=== PATIENT | female | born 1950 | race Two or more races ===

== ENCOUNTER 2016-06-27 02:52 | Emergency (ER) | payer MEDICARE, OTHER ==
[2016-06-27] MEDS ORDERED: IV NS 0.9% 500 ML IV ONE (03:44)
[2016-06-27] MEDS ORDERED: ONDANSETRON HCL/PF 4 MG/2 ML VIAL ONE (03:44)
[2016-06-27] MEDS ORDERED: MORPHINE SULFATE INJ 4 MG/ML DISP.SYRIN ONE (03:44)
[2016-06-27 03:58] LABS: BASOPHILS % (AUTO) 0.6 % (0.0-2.0); DIFF TOTAL % 100 %; EOSINOPHILS % (AUTO) 0.3 % (0.0-6.0); HEMATOCRIT 42 % (33-45); HEMOGLOBIN 14.2 g/dL (11.5-14.8); LYMPHOCYTES # (AUTO) 2.5 /CMM (0.8-4.8); LYMPHOCYTES % (AUTO) 37.4 % (20.0-44.0); MEAN CORPUSCULAR HEMOGLOBIN 28 PG (26.0-33.0); MEAN CORPUSCULAR HGB CONC 34 g/dl (31.0-36.0); MEAN CORPUSCULAR VOLUME 82 fL (82-100); MONOCYTES # (AUTO) 0.8 /CMM (0.1-1.30); MONOCYTES % (AUTO) 12.1 % (2.0-12.0); NEUTROPHILS # (AUTO) 3.4 /CMM (1.8-8.9); NEUTROPHILS % (AUTO) 49.6 % (43.0-81.0); PLATELET COUNT (AUTO) 347 /CMM (150-450); RED BLOOD CELL COUNT(AUTO) 5.17 MIL/uL (4.0-5.2); WHITE BLOOD COUNT (AUTO) 6.8 K/uL (4.3-11.0)
[2016-06-27] MEDS ORDERED: ONDANSETRON HCL/PF 4 MG/2 ML VIAL IVP ONE (04:00)
[2016-06-27] MEDS ORDERED: IV NS 0.9% 500 ML BAG IV ONE (04:00)
[2016-06-27] MEDS ORDERED: MORPHINE SULFATE INJ 2 MG/ML DISP.SYRIN IV ONE (04:00)
[2016-06-27 04:07] LABS: ANION GAP 12 (5-14); CALCIUM, SERUM 8.9 mg/dL (8.5-10.1); CARBON DIOXIDE 32 mmol/L (21-32); CHLORIDE 96 mmol/L (98-107); CREATININE 0.8 mg/dL (0.6-1.3); GFR 72 mL/min (>60); GLUCOSE 103 mg/dL (74-106); POTASSIUM 3.4 mmol/L (3.5-5.1); SODIUM SERUM 137 mmol/L (136-145); UREA NITROGEN, BLOOD 18 mg/dL (7-18)
[2016-06-27 04:10] LABS: INR 0.92 (0.87-1.13); PROTHROMBIN TIME 9.9 SECS (9.5-12.7)
[2016-06-27 04:13] LABS: ALANINE AMINOTRANSFERASE 76 U/L (12-78); ALBUMIN 3.9 g/dL (3.4-5.0); ASPARTATE AMINOTRANSFERASE 43 U/L (15-37); BILIRUBIN,TOTAL 0.2 mg/dL (0.2-1.0); TOTAL PROTEIN, SERUM 8.4 g/dL (6.4-8.2)
[2016-06-27 04:15] LABS: TROPONIN I < 0.017 ng/mL (0.00-0.056)
[2016-06-27 04:19] LABS: INDIRECT BILIRUBIN 0.2 mg/dL (0.0-1.1)
[2016-06-27 04:24] LABS: KETONES,URINE NEGATIVE (NEGATIVE); LEUKOCYTE ESTERASE ,URINE NEGATIVE (NEGATIVE)
[2016-06-27 04:33] LABS: ADD UA MICROSCOPIC YES
[2016-06-27 04:36] LABS: ADD URINE CULTURE NO
[2016-06-27 04:55] VITALS: BP 138/71
== END 2016-06-27 04:56 | disposition home or self-care (01) ==
LOC: ER 02:55
DX: K85.90 Acute pancreatitis without necrosis or infection, unspecified (principal)
CPT/HCPCS: 36415; 74176; 80048; 80076; 81001; 83690; 84484; 85025; 85730; 93005; 96361; 96374; 99285; A4606 ×2; J2270; J2405; J7040; 81000-TC; Z7610

== ENCOUNTER 2016-07-11 18:15 | Inpatient (IN) | payer MEDICARE, OTHER ==
[~2016-07-11] VITALS: Ht 163.8 cm; Wt 69.9 kg
[2016-07-11] MEDS ORDERED: IV NS 0.9% 1,000 ML BAG IV ONE (19:00)
[2016-07-11] MEDS ORDERED: ONDANSETRON HCL/PF 4 MG/2 ML VIAL IV ONE (19:00)
[2016-07-11] MEDS ORDERED: IV NS 0.9% 1,000 ML ONE (19:09)
[2016-07-11] MEDS ORDERED: IV SET PRIMARY PUMP SET 1 EA INFUS.SET MC ONE (19:09)
[2016-07-11] MEDS ORDERED: ONDANSETRON HCL/PF 4 MG/2 ML VIAL ONE (19:09)
[2016-07-11 19:26] LABS: ANION GAP 13 (5-14); CALCIUM, SERUM 8.9 mg/dL (8.5-10.1); CARBON DIOXIDE 29 mmol/L (21-32); CHLORIDE 105 mmol/L (98-107); GFR 55 mL/min (>60); GLUCOSE 121 mg/dL (74-106); POTASSIUM 3.6 mmol/L (3.5-5.1); SODIUM SERUM 143 mmol/L (136-145); UREA NITROGEN, BLOOD 14 mg/dL (7-18)
[2016-07-11 19:30] LABS: BASOPHILS # (AUTO) 0.1 /CMM (0.0-0.2); BASOPHILS % (AUTO) 0.9 % (0.0-2.0); DIFF TOTAL % 100 %; EOSINOPHILS % (AUTO) 0.1 % (0.0-6.0); HEMATOCRIT 39 % (33-45); HEMOGLOBIN 12.8 g/dL (11.5-14.8); LYMPHOCYTES # (AUTO) 0.9 /CMM (0.8-4.8); LYMPHOCYTES % (AUTO) 9.3 % (20.0-44.0); MEAN CORPUSCULAR HEMOGLOBIN 27 PG (26.0-33.0); MEAN CORPUSCULAR HGB CONC 33 g/dl (31.0-36.0); MEAN CORPUSCULAR VOLUME 83 fL (82-100); MONOCYTES # (AUTO) 0.3 /CMM (0.1-1.30); MONOCYTES % (AUTO) 3.1 % (2.0-12.0); NEUTROPHILS # (AUTO) 8.5 /CMM (1.8-8.9); NEUTROPHILS % (AUTO) 86.6 % (43.0-81.0); PLATELET COUNT (AUTO) 344 /CMM (150-450); RED BLOOD CELL COUNT(AUTO) 4.73 MIL/uL (4.0-5.2); WHITE BLOOD COUNT (AUTO) 9.8 K/uL (4.3-11.0)
[2016-07-11 19:34] LABS: TROPONIN I < 0.017 ng/mL (0.00-0.056)
[2016-07-11] MEDS ORDERED: MECLIZINE HCL 25 MG TABLET ONE (19:37)
[2016-07-11 19:56] LABS: BAND % (MANUAL) 4 % (0.0-5.0); BASOPHILS % (MANUAL) 0 % (0.0-2.0); EOSINOPHILS % (MANUAL) 0 % (0-4); LYMPHOCYTES % (MANUAL) 11 % (16-48); PLATELET ESTIMATE ADEQUATE
[2016-07-11 19:57] LABS: RBC MORPHOLOGY COMMENT NORMAL RBC MORPH
[2016-07-11] MEDS ORDERED: MECLIZINE HCL 12.5 MG TABLET PO ONE (20:00)
[2016-07-11] MEDS ORDERED: LORAZEPAM INJ 2 MG/ML VIAL ONE (21:07)
[2016-07-11] MEDS ORDERED: DEXAMETHASONE SOD PHOSPHATE 4 MG/ML VIAL ONE (21:07)
[2016-07-11] MEDS ORDERED: DEXAMETHASONE SOD PHOSPHATE 4 MG/ML VIAL IV ONE (21:30)
[2016-07-11] MEDS ORDERED: LORAZEPAM INJ 2 MG/ML VIAL IV ONE (21:30)
[2016-07-11 22:35] VITALS: BP 134/65
[2016-07-11 22:50] VITALS: BP 134/65
[2016-07-11] MEDS ORDERED: ONDANSETRON HCL/PF 4 MG/2 ML VIAL IVP PRN (23:30)
[2016-07-11] MEDS ORDERED: LORAZEPAM INJ 2 MG/ML VIAL IV PRN (23:30)
[2016-07-11] MEDS ORDERED: ACETAMINOPHEN 325 MG TABLET PO PRN (23:30)
[2016-07-12] MEDS ORDERED: IPRA12.9 IH (00:04)
[2016-07-12] MEDS ORDERED: HYDR12.5 PO (00:04)
[2016-07-12] MEDS ORDERED: LEVO25TA7 PO (00:04)
[2016-07-12] MEDS ORDERED: POTA8CAP10 PO (00:04)
[2016-07-12] MEDS ORDERED: IPRATROPIUM BROMIDE 14 GM INHALER (or 12.9 GM) IH PRN (01:30)
[2016-07-12 07:04] LABS: BASOPHILS # (AUTO) 0.1 /CMM (0.0-0.2); BASOPHILS % (AUTO) 0.6 % (0.0-2.0); DIFF TOTAL % 100 %; EOSINOPHILS # (AUTO) 0.1 /CMM (0.0-0.7); EOSINOPHILS % (AUTO) 1.1 % (0.0-6.0); HEMATOCRIT 37 % (33-45); HEMOGLOBIN 12.1 g/dL (11.5-14.8); LYMPHOCYTES # (AUTO) 2.9 /CMM (0.8-4.8); LYMPHOCYTES % (AUTO) 29.6 % (20.0-44.0); MEAN CORPUSCULAR HEMOGLOBIN 28 PG (26.0-33.0); MEAN CORPUSCULAR HGB CONC 33 g/dl (31.0-36.0); MEAN CORPUSCULAR VOLUME 83 fL (82-100); MONOCYTES # (AUTO) 0.7 /CMM (0.1-1.30); MONOCYTES % (AUTO) 7.7 % (2.0-12.0); NEUTROPHILS # (AUTO) 5.9 /CMM (1.8-8.9); PLATELET COUNT (AUTO) 331 /CMM (150-450); RED BLOOD CELL COUNT(AUTO) 4.39 MIL/uL (4.0-5.2); WHITE BLOOD COUNT (AUTO) 9.7 K/uL (4.3-11.0)
[2016-07-12 07:25] LABS: CALCIUM, SERUM 8.3 mg/dL (8.5-10.1); CREATININE 0.8 mg/dL (0.6-1.3); PHOSPHORUS 3.1 mg/dL (2.5-4.9); POTASSIUM 3.6 mmol/L (3.5-5.1)
[2016-07-12 08:00] VITALS: BP 106/63
[2016-07-12] MEDS ORDERED: IPRATROPIUM NEB FS 0.5 MG/2.5 ML AMPUL.NEB NEB PRN (08:30)
[2016-07-12] MEDS: POTASSIUM CHLORIDE 10 MEQ TABLET.SA PO SCH (08:45)
[2016-07-12] MEDS: PANTOPRAZOLE 40 MG VIAL IV SCH (08:46)
[2016-07-12] MEDS: LEVOTHYROXINE SODIUM 25 MCG TABLET PO SCH (08:46)
[2016-07-12] MEDS: HYDROCHLOROTHIAZIDE 25 MG TABLET PO SCH (08:46)
[2016-07-12] MEDS ORDERED: MECLIZINE HCL 12.5 MG TABLET PO PRN (10:00)
[2016-07-12] MEDS ORDERED: DIAZEPAM 2 MG TABLET PO PRN (11:30)
[2016-07-12 16:00] VITALS: BP 105/67
[2016-07-12 20:00] VITALS: BP 102/65
[2016-07-12 22:00] VITALS: BP 102/65
[2016-07-13] MEDS: LEVOTHYROXINE SODIUM 25 MCG TABLET PO SCH (07:48)
[2016-07-13 08:00] VITALS: BP 112/70
[2016-07-13] MEDS: HYDROCHLOROTHIAZIDE 25 MG TABLET PO SCH (08:08)
[2016-07-13] MEDS: POTASSIUM CHLORIDE 10 MEQ TABLET.SA PO SCH (08:08)
[2016-07-13] MEDS: PANTOPRAZOLE 40 MG VIAL IV SCH (08:11)
[2016-07-13] MEDS ORDERED: PROGESTERONE,MICRONIZED 100 MG CAPSULE PO SCH (09:00)
[2016-07-13] MEDS ORDERED: DIAZEPAM 2 MG TABLET PO ONE (11:00)
[2016-07-13] MEDS: MECLIZINE HCL 12.5 MG TABLET PO SCH ×2 (13:00→16:32)
[2016-07-13 14:45] LABS: KETONES,URINE NEGATIVE (NEGATIVE); LEUKOCYTE ESTERASE ,URINE NEGATIVE (NEGATIVE); PH,URINE 6.5 (5.0-8.0)
[2016-07-13 14:50] LABS: ADD UA MICROSCOPIC YES
[2016-07-13 14:57] LABS: ADD URINE CULTURE NO; WBC,URINE NONE SEEN /HPF (0-3)
[2016-07-13 16:00] VITALS: BP 111/62
== END 2016-07-13 18:15 | disposition home or self-care (01) | DRG 149 ==
LOC: ER 18:16 → MEDSG2 22:07
PROVIDERS: ADMIT Nurse Practitioner Acute Care; ATTEND Nurse Practitioner Acute Care
DX: H81.09 Meniere's disease, unspecified ear (principal); K21.9 Gastro-esophageal reflux disease without esophagitis; E03.9 Hypothyroidism, unspecified; E78.5 Hyperlipidemia, unspecified
CPT/HCPCS: 36415; 70450-TC; 70551-TC; 80048-TC; 80061-TC; 81000-TC; 83735-TC; 84100-TC; 84484-TC; 85025-TC; 87081-TC; A4606; C9113; J1100; J2060; J2405; J7030; J8597; Z7610

== ENCOUNTER 2018-03-29 12:13 | Emergency (ER) | payer MEDICARE, OTHER ==
[~2018-03-29] VITALS: Ht 162.6 cm; Wt 72.1 kg
[~2018-03-29 12:13] MED LIST: HYDR12.5 PO; IPRA12.9 IH; LEVO25TA7 PO; POTA8CAP10 PO
--- NOTE | 2018-03-29 12:30 | NUR ---
ASHTYN FROM HOME WITH CC OF ABDOMINAL CRAMPING, FEVER X 2 DAYS,WATERY DIARRHEA THIS AM ,AOX3 , VSS , SKIN WARM TO TOUCH , WILL CONTINUE TO MONITOR
[2018-03-29 13:29] LABS: BASOPHILS % (AUTO) 0.3 % (0.0-2.0); EOSINOPHILS % (AUTO) 1.2 % (0.0-6.0); HEMATOCRIT 41 % (33-45); HEMOGLOBIN 13.9 g/dL (11.5-14.8); LYMPHOCYTES # (AUTO) 1.2 /CMM (0.8-4.8); LYMPHOCYTES % (AUTO) 11.8 % (20.0-44.0); MEAN CORPUSCULAR HGB CONC 34 g/dl (31.0-36.0); MEAN CORPUSCULAR VOLUME 83 fL (82-100); MONOCYTES # (AUTO) 0.6 /CMM (0.1-1.30); MONOCYTES % (AUTO) 5.7 % (2.0-12.0); PLATELET COUNT (AUTO) 282 /CMM (150-450); RDW COEFFICIENT OF VARIATION 13.4 (11.5-15.0); RED BLOOD CELL COUNT(AUTO) 4.95 MIL/uL (4.0-5.2); WHITE BLOOD COUNT (AUTO) 9.9 K/uL (4.3-11.0)
[2018-03-29 13:37] LABS: CALCIUM, SERUM 8.7 mg/dL (8.5-10.1); CREATININE 1.1 mg/dL (0.6-1.3); POTASSIUM 3.5 mmol/L (3.5-5.1)
[2018-03-29 13:44] LABS: ALBUMIN 3.3 g/dL (3.4-5.0); BILIRUBIN,DIRECT 0.1 mg/dL (0.0-0.2); BILIRUBIN,TOTAL 0.3 mg/dL (0.2-1.0); TOTAL PROTEIN, SERUM 7.3 g/dL (6.4-8.2)
--- NOTE | 2018-03-29 14:25 | NUR ---
URINE SPECIMEN COLLECTED , LABELED AND SENT TO LAB .
[2018-03-29 14:29] LABS: APPEARANCE,URINE Clear (CLEAR); BILIRUBIN,URINE Negative (NEGATIVE); BLOOD, URINE Moderate Ery/uL (NEGATIVE); COLOR,URINE Yellow (YELLOW); KETONES,URINE Negative (NEGATIVE); LEUKOCYTE ESTERASE ,URINE Small (NEGATIVE); NITRITE, URINE Negative (NEGATIVE); PH,URINE 5.5 (5.0-8.0); PROTEIN,URINE Negative (NEGATIVE); UGLUCOSE Negative (NEGATIVE); UROBILINOGEN,URINE 0.2 EU/dL (0.2)
[2018-03-29 14:34] LABS: BACTERIA,URINE Many /HPF (None Seen); SQUAMOUS EPITHELIAL CELL,UR Many /HPF (None Seen)
[2018-03-29 15:14] VITALS: BP 120/55
[2018-03-29 23:15] LABS: OCCULT BLOOD STOOL NEGATIVE (NEGATIVE)
== END 2018-03-29 15:16 | disposition home or self-care (01) ==
LOC: ER 12:16
DX: R10.84 Generalized abdominal pain (principal); R19.7 Diarrhea, unspecified; E78.5 Hyperlipidemia, unspecified; Z88.0 Allergy status to penicillin; Z88.8 Allergy status to other drugs, medicaments and biological substances; Z79.899 Other long term (current) drug therapy
CPT/HCPCS: 36415; 74176; 80048; 80076; 81001; 82272; 83690; 85025; 87015; 87045; 87086; 87427 ×3; 87493; 89055; 99285; A4606; 81000-TC; Z7610

== ENCOUNTER 2019-03-09 15:56 | Emergency (ER) | payer MEDICARE, OTHER ==
[~2019-03-09] VITALS: Ht 162.6 cm; Wt 65.3 kg
[~2019-03-09 15:56] MED LIST changes: -POTA8CAP10 PO; +POTA8CAP20 PO
--- NOTE | 2019-03-09 16:14 | NUR ---
CAME IN FOR PALPITATIONS AND LIGHTHEADED S/P THREADMILL 2 HOURS AGO. I FEEL FINE RIGHT NOW, TO ER BED 9, HOOKED TO MONITOR, VSS, CHANGED TO HOSPITAL GOWN, PROVIDED W WARM BLANKET, AWAITING MD COLE.
--- NOTE | 2019-03-09 17:00 | NUR ---
DR NARANJO AT BEDSIDE FOR EVAL
[2019-03-09 17:26] LABS: BASOPHILS # (AUTO) 0.1 /CMM (0.0-0.2); BASOPHILS % (AUTO) 0.8 % (0.0-2.0); HEMATOCRIT 40 % (33-45); HEMOGLOBIN 13.6 g/dL (11.5-14.8); LYMPHOCYTES % (AUTO) 20.8 % (20.0-44.0); MEAN CORPUSCULAR HGB CONC 34 g/dl (31.0-36.0); MEAN CORPUSCULAR VOLUME 85 fL (82-100); MONOCYTES # (AUTO) 0.6 /CMM (0.1-1.30); NEUTROPHILS # (AUTO) 6.8 /CMM (1.8-8.9); NEUTROPHILS % (AUTO) 71.4 % (43.0-81.0); PLATELET COUNT (AUTO) 306 /CMM (150-450); WHITE BLOOD COUNT (AUTO) 9.5 K/uL (4.3-11.0)
[2019-03-09] MEDS ORDERED: IV NS 0.9% 1,000 ML BAG IV ONE (17:30)
[2019-03-09 17:52] LABS: THYROID STIMULATING HORMONE 0.193 uIU/mL (0.358-3.74)
[2019-03-09 17:54] LABS: CALCIUM, SERUM 8.8 mg/dL (8.5-10.1); CARBON DIOXIDE 28 mmol/L (21-32); CHLORIDE 101 mmol/L (98-107); CREATININE 0.9 mg/dL (0.6-1.3); GLUCOSE 96 mg/dL (74-106); POTASSIUM 3.6 mmol/L (3.5-5.1); SODIUM SERUM 137 mmol/L (136-145); UREA NITROGEN, BLOOD 14 mg/dL (7-18)
--- NOTE | 2019-03-09 17:56 | NUR ---
URINE SAMPLE SENT TO LAB
[2019-03-09 17:59] LABS: ALANINE AMINOTRANSFERASE 18 U/L (12-78); ALBUMIN 3.6 g/dL (3.4-5.0); ALKALINE PHOSPHATASE 68 U/L (46-116); ASPARTATE AMINOTRANSFERASE 19 U/L (15-37); BILIRUBIN,DIRECT 0.1 mg/dL (0.0-0.2); BILIRUBIN,TOTAL 0.2 mg/dL (0.2-1.0); LIPASE 171 U/L (73-393); TOTAL PROTEIN, SERUM 7.5 g/dL (6.4-8.2)
[2019-03-09 18:00] LABS: APPEARANCE,URINE Clear (CLEAR); BILIRUBIN,URINE Negative (NEGATIVE); BLOOD, URINE Small Ery/uL (NEGATIVE); COLOR,URINE Yellow (YELLOW); KETONES,URINE Negative (NEGATIVE); LEUKOCYTE ESTERASE ,URINE Negative (NEGATIVE); NITRITE, URINE Negative (NEGATIVE); PROTEIN,URINE Negative (NEGATIVE); UGLUCOSE Negative (NEGATIVE); UROBILINOGEN,URINE 0.2 EU/dL (0.2)
[2019-03-09 18:32] LABS: BACTERIA,URINE Rare /HPF (None Seen); SQUAMOUS EPITHELIAL CELL,UR Few /HPF (None Seen); WBC,URINE 0-2 /HPF (0-3)
[2019-03-09 18:43] VITALS: BP 126/70
--- NOTE | 2019-03-09 19:09 | NUR ---
IV removed. Catheter intact and site benign. Pressure and 4x4 applied to site. No bleeding noted. Patient discharged to home in stable condition. Written and verbal after care instructions given. Patient verbalizes understanding of instruction.
== END 2019-03-09 19:10 | disposition home or self-care (01) ==
LOC: ER 15:58
DX: R00.2 Palpitations (principal); R42 Dizziness and giddiness; E03.9 Hypothyroidism, unspecified; G47.30 Sleep apnea, unspecified; Z88.0 Allergy status to penicillin; Z88.1 Allergy status to other antibiotic agents; Z88.9 Allergy status to unspecified drugs, medicaments and biological substances
CPT/HCPCS: 36415; 71045; 80048; 80076; 81001; 83690; 84439; 84443; 84481; 84484; 85025; 93005; 96360; 99284; J7030; 81000-TC

== ENCOUNTER 2019-06-04 19:28 | Emergency (ER) | payer MEDICARE, OTHER, BC ==
[~2019-06-04] VITALS: Ht 162.6 cm; Wt 65.8 kg
[2019-06-04 19:33] VITALS: BP 139/81
[2019-06-04] MEDS ORDERED: ACETAMINOPHEN 325 MG TABLET ONE (20:18)
[2019-06-04] MEDS ORDERED: ACETAMINOPHEN 325 MG TABLET PO ONE (20:30)
--- NOTE | 2019-06-04 21:33 | NUR ---
Patient discharged to home in stable condition. Written and verbal after care instructions given. Patient verbalizes understanding of instruction. Pt ambulatory with a steady gait
== END 2019-06-04 21:34 | disposition home or self-care (01) ==
LOC: ER 19:29
DX: J06.9 Acute upper respiratory infection, unspecified (principal); R59.0 Localized enlarged lymph nodes; I95.9 Hypotension, unspecified; E03.9 Hypothyroidism, unspecified; E78.5 Hyperlipidemia, unspecified; G47.30 Sleep apnea, unspecified; Z90.89 Acquired absence of other organs; Z88.0 Allergy status to penicillin; Z88.1 Allergy status to other antibiotic agents; Z88.9 Allergy status to unspecified drugs, medicaments and biological substances; Z79.899 Other long term (current) drug therapy
CPT/HCPCS: 86403-TC; 87070-TC

== ENCOUNTER 2021-03-21 18:46 | Inpatient (IN) | payer MEDICARE, BC ==
[~2021-03-21] VITALS: Ht 162.6 cm; Wt 68.5 kg
[2021-03-21] MEDS ORDERED: ASPIRIN 325 MG TABLET ONE (18:57)
[2021-03-21] MEDS ORDERED: NITROGLYCERIN 0.4 MG/TAB BOTTLE ONE (18:57)
[2021-03-21] MEDS ORDERED: ASPIRIN 325 MG TABLET PO ONE (19:00)
[2021-03-21] MEDS ORDERED: NITROGLYCERIN 0.4 MG/TAB BOTTLE SL ONE (19:00)
--- NOTE | 2021-03-21 19:00 | NUR ---
TO ER BED 1, CP, PRESSURE LIKE; 12/28- HAPPENED WHILE SHE WAS USING TREADMILL, DENIES PAIN UPON ARRIVAL, AAOX4, BREATHING EVEN AND NON LABORED
--- NOTE | 2021-03-21 19:14 | NUR ---
REFUSED ASPIRIN AND NITRO, DR JOHN AWARE
[2021-03-21 19:23] LABS: BASOPHILS # (AUTO) 0.1 K/uL (0.0-0.2); BASOPHILS % (AUTO) 0.9 % (0.0-2.0); EOSINOPHILS % (AUTO) 2.3 % (0.0-6.0); HEMATOCRIT 42 % (33-45); HEMOGLOBIN 13.1 g/dL (11.5-14.8); LYMPHOCYTES # (AUTO) 2.3 K/uL (0.8-4.8); LYMPHOCYTES % (AUTO) 31.2 % (20.0-44.0); MEAN CORPUSCULAR HGB CONC 32 g/dl (31.0-36.0); MEAN CORPUSCULAR VOLUME 90 fL (82-100); MONOCYTES # (AUTO) 0.6 K/uL (0.1-1.30); MONOCYTES % (AUTO) 8.6 % (2.0-12.0); NEUTROPHILS # (AUTO) 4.3 K/uL (1.8-8.9); PLATELET COUNT (AUTO) 317 K/uL (150-450); RED BLOOD CELL COUNT(AUTO) 4.62 MIL/uL (4.0-5.2); WHITE BLOOD COUNT (AUTO) 7.5 K/uL (4.3-11.0)
--- NOTE | 2021-03-21 19:25 | NUR ---
CALLED LAB FOR SWAB
[2021-03-21 19:31] LABS: CALCIUM, SERUM 9.1 mg/dL (8.5-10.1); CARBON DIOXIDE 30 mmol/L (21-32); CHLORIDE 102 mmol/L (98-107); CREATININE 0.9 mg/dL (0.6-1.3); GLUCOSE 102 mg/dL (74-106); POTASSIUM 3.3 mmol/L (3.5-5.1); SODIUM SERUM 138 mmol/L (136-145); UREA NITROGEN, BLOOD 14 mg/dL (7-18)
--- NOTE | 2021-03-21 20:20 | NUR ---
F/U FOR COVID SWAB, ETA 15MIN
--- NOTE | 2021-03-21 20:57 | NUR ---
F/U ON COVID RESULT, PER LAB, STILL RUNNING
[2021-03-21] MEDS ORDERED: MAGNESIUM HYDROXIDE 30 ML UDC PO PRN (21:00)
[2021-03-21] MEDS ORDERED: ACETAMINOPHEN 325 MG TABLET PO PRN (21:00)
[2021-03-21] MEDS ORDERED: LORAZEPAM 1 MG TABLET PO PRN (21:00)
[2021-03-21] MEDS ORDERED: ENOXAPARIN SODIUM 40 MG/0.4 ML DISP.SYRIN SQ SCH (21:00)
[2021-03-21] MEDS ORDERED: Z GUARD REMEDY 2 OZ OINT TP PRN (21:00)
[2021-03-21] MEDS ORDERED: ONDANSETRON HCL/PF 4 MG/2 ML VIAL IVP PRN (21:00)
[2021-03-21] MEDS ORDERED: MORPHINE SULFATE INJ 2 MG/ML DISP.SYRIN IV PRN (21:00)
[2021-03-21] MEDS ORDERED: HYDROCODONE/APAP 5/325MG TABLET PO PRN (21:00)
[2021-03-21] MEDS ORDERED: POTASSIUM CHLORIDE 10 MEQ TABLET.SA PO ONE (21:00)
[2021-03-21] MEDS ORDERED: MAG HYDROX/AL HYDROX/SIMETH 30 ML UDC PO PRN (21:00)
[2021-03-21] MEDS ORDERED: NITROGLYCERIN 0.4 MG/TAB BOTTLE SL PRN (21:00)
--- NOTE | 2021-03-21 21:17 | NUR ---
CALLED HOUSE SUP FOR TELE BED
[2021-03-21 21:54] VITALS: BP 146/64
--- NOTE | 2021-03-21 23:00 | NUR ---
RN NOTES PT IS A 70 YEAR OLD FEMALE A/O X4 ON ROOM AIR TOLERATING WELL. NO PAIN OR DISCOMFORT NOTED OR REPORTED NO CHEST PAIN.ON TELE MONITOR. ALLERGIC TO PENICILLIN, CLINDAMYCIN, PROCHLORPERAZINE PT STATED SHE IS VERY SENSITIVE TO ALL STIMULANTS WELL. ADMITTING DX CHEST PAIN POSSIBLE ACS IV SITE ON THE LEFT AC 18 G S/L INTACT FLUSHING WELL. NO EDEMA PRESENT SKIN INTACT AMBULATORY. 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 PT HAS A PILL CONTAINER IN HER BAD BUT REFUSES TO GIVE IT TO ME RISK EXPLAINED PT STATED " I AM A GOOD PT I PROMISE NOT TO TAKE ANY OF THE PILLS AND IF I DO I WILL LET YOU KNOW BEFORE I TAKE THEM." PT ONLY HAVE ME ONE MEDICATION SERC- 16. CHARGE NURSE AWARE. PT REFUSED CHECK OF WALLET. PT ORIENTED TO ROOM AND UNIT CALL LIGHT PLACED WITHIN REACH BILATERAL SIDE RAILS UP FOR SAFETY. PT REFUSED POTASSIUM AND LOVENOX AT THIS TIME STATED " MY BODY NEEDS TO BE IN HOMEOSTASIS I CANNOT TAKE ANY RANDOM MEDICATION I KNOW MY BODY IS VERY SENSITIVE" RISK AND BENEFITS EXPLAINED PT STILL REFUSED. PRN ATIVAN GIVEN AND TOLERATED WELL ALL NEEDS MET AT THIS TIME. WILL CONTINUE TO MONITOR.
[2021-03-21 23:28] VITALS: BP 146/74
[2021-03-22] VITALS: BP 120/51
[2021-03-22 04:00] VITALS: BP 110/50
[2021-03-22 06:28] LABS: BASOPHILS # (AUTO) 0.1 K/uL (0.0-0.2); EOSINOPHILS % (AUTO) 2.5 % (0.0-6.0); HEMATOCRIT 39 % (33-45); LYMPHOCYTES % (AUTO) 34.7 % (20.0-44.0); MEAN CORPUSCULAR HGB CONC 33 g/dl (31.0-36.0); MEAN CORPUSCULAR VOLUME 86 fL (82-100); MONOCYTES # (AUTO) 0.8 K/uL (0.1-1.30); NEUTROPHILS # (AUTO) 4.6 K/uL (1.8-8.9); NEUTROPHILS % (AUTO) 52.8 % (43.0-81.0); PLATELET COUNT (AUTO) 286 K/uL (150-450); RED BLOOD CELL COUNT(AUTO) 4.52 MIL/uL (4.0-5.2); WHITE BLOOD COUNT (AUTO) 8.7 K/uL (4.3-11.0)
--- NOTE | 2021-03-22 06:40 | NUR ---
RN NOTES A/O X4 ON ROOM AIR TOLERATING WELL. NO PAIN OR DISCOMFORT NOTED OR REPORTED NO CHEST PAIN. IV SITE ON THE LEFT AC 18 G S/L INTACT FLUSHING WELL. NO EDEMA PRESENT SKIN INTACT AMBULATORY. CALL LIGHT PLACED WITHIN REACH BILATERAL SIDE RAILS UP FOR SAFETY. ALL NEEDS MET AT THIS TIME. WILL ENDORSE CARE TO DAY SHIFT NURSE MEDICATION WILL BE GIVEN TO MORNING NURSE AND WILL BE MADE AWARE OF PTS MEDICATIONS AT BEDSIDE PT IS STILL REFUSING TO GIVE THEM TO PHARMACY WILL ENDORSE CRAE TO DAY SHIFT NURSE.
[2021-03-22 07:02] LABS: CALCIUM, SERUM 9.1 mg/dL (8.5-10.1); CARBON DIOXIDE 27 mmol/L (21-32); CHLORIDE 105 mmol/L (98-107); CREATININE 0.8 mg/dL (0.6-1.3); GLUCOSE 99 mg/dL (74-106); MAGNESIUM 2.3 mg/dL (1.8-2.4); PHOSPHORUS 3.4 mg/dL (2.5-4.9); POTASSIUM 3.4 mmol/L (3.5-5.1); SODIUM SERUM 142 mmol/L (136-145); UREA NITROGEN, BLOOD 14 mg/dL (7-18)
[2021-03-22 07:12] LABS: CHOLESTEROL 249 mg/dL (<200); HDL CHOLESTEROL 40 mg/dL (40-60); LDL 170 mg/dL (0-99); THYROID STIMULATING HORMONE 0.788 uIU/mL (0.358-3.74); TRIGLYCERIDES 177 mg/dL (30-150)
[2021-03-22] MEDS ORDERED: PANTOPRAZOLE 40 MG TABLET.DR PO SCH (07:30)
[2021-03-22] MEDS ORDERED: LEVOTHYROXINE SODIUM 75 MCG TABLET PO SCH (07:30)
--- NOTE | 2021-03-22 07:55 | NUR ---
MEDICAL IMAGING TECHNOLOGIST NOTES RECEIVED PATIENT LYING IN BED, AWAKE. A/O X4. STABLE ON ROOM AIR - NO SOB NOTED. NO DISTRESS/DISCOMFORT NOTED. NO CHEST PAIN NOTED. IV ACCESS TO LEFT AC #18 - S/L. RECEIVED PATIENT MEDICATION FROM NIGHT NURSE - WILL ASSESS IF ABLE TO GIVE TO PHARMACY TODAY. SAFETY MEASURES IN PLACE. CALL LIGHT WITHIN REACH. WILL CONTINUE TO MONITOR.
[2021-03-22 08:00] VITALS: BP 136/71
[2021-03-22] MEDS ORDERED: HYDROCHLOROTHIAZIDE 25 MG TABLET PO SCH (09:00)
[2021-03-22] MEDS ORDERED: ASPIRIN 81 MG TAB.CHEW PO SCH (09:00)
[2021-03-22 12:00] VITALS: BP 130/74
[2021-03-22] MEDS ORDERED: IPRATROPIUM NEB FS 0.5 MG/2.5 ML AMPUL.NEB NEB SCH (13:30)
[2021-03-22] MEDS ORDERED: NITROGLYCERIN 0.4 MG/TAB BOTTLE SL PRN (15:30)
[2021-03-22] MEDS ORDERED: IOHEXOL-350 100 ML VIAL IV ONE (15:40)
[2021-03-22] MEDS ORDERED: IV NS 0.9% 250 ML IV ONE (15:40)
[2021-03-22] MEDS ORDERED: METOPROLOL TARTRATE INJ 5 MG/5 ML AMPUL ONE (15:45)
[2021-03-22] MEDS ORDERED: NITROGLYCERIN 0.4 MG/TAB BOTTLE ONE (15:45)
[2021-03-22 16:00] VITALS: BP 118/65
[2021-03-22] MEDS: METOPROLOL TARTRATE INJ 5 MG/5 ML AMPUL IVP PRN ×3 (16:03→16:20)
[2021-03-22 16:20] VITALS: BP 124/60
[2021-03-22] MEDS ORDERED: POTASSIUM CHLORIDE 10 MEQ TABLET.SA PO SCH (17:00)
--- NOTE | 2021-03-22 18:24 | NUR ---
APPEALS BOARD REFEREE CLOSING NOTES PATIENT CURRENTLY LYING IN BED, AWAKE. A/O X4. STABLE ON ROOM AIR - NO SOB NOTED. NO DISTRESS/DISCOMFORT NOTED. NO CHEST PAIN NOTED. PATIENT STATES SHE IS WAITING FOR CTCA RESULTS UNTIL 730 AND THEN SHE WILL BE LEAVING TO GO HOME REGARDLESS. REQUESTED TO HAVE IV ACCESS REMOVED - STATED IT WAS HURTING HER. SAFETY MEASURES IN PLACE. CALL LIGHT WITHIN REACH. WILL ENDORSE TO DRUPAL PROGRAMMER NURSE FOR ESSIE.
--- NOTE | 2021-03-22 19:24 | NUR ---
MS RN NOTES PATIENT RECEIVED BY THE [facility],LEAVING ALREADY AGAINST MEDICAL ADVICE.SALINE LOCK REMOVED BY DAY SHIFT NURSE,CANT WAIT FOR THE CTA RESULT.CHARGE NURSE DUNG MADE AWARE.
== END 2021-03-22 19:25 | disposition left against medical advice (07) | DRG 313 ==
LOC: ER 18:51 → TELE 22:09
PROVIDERS: ADMIT Nurse Practitioner Acute Care; ATTEND Nurse Practitioner Acute Care
DX: R07.9 Chest pain, unspecified (principal); E87.6 Hypokalemia; K21.9 Gastro-esophageal reflux disease without esophagitis; E03.9 Hypothyroidism, unspecified; J45.909 Unspecified asthma, uncomplicated; H81.09 Meniere's disease, unspecified ear; Z20.822 Contact with and (suspected) exposure to COVID-19
CPT/HCPCS: 36415; 71045-TC; 75574; 80048-TC; 80061-TC; 83735-TC; 83880; 84100-TC; 84443-TC; 84484-TC; 85025-TC; 87081-TC; 93307-TC; C9803; G0378; J3490; J7050; Q9967

== ENCOUNTER 2022-06-04 11:48 | Emergency (ER) | payer MEDICARE, BC ==
[~2022-06-04] VITALS: Ht 165.1 cm; Wt 71.7 kg
[2022-06-04 12:35] LABS: BASOPHILS # (AUTO) 0.1 K/uL (0.0-0.2); BASOPHILS % (AUTO) 0.8 % (0.0-2.0); EOSINOPHILS % (AUTO) 3.2 % (0.0-6.0); HEMATOCRIT 40 % (33-45); HEMOGLOBIN 13.2 g/dL (11.5-14.8); LYMPHOCYTES # (AUTO) 2.1 K/uL (0.8-4.8); LYMPHOCYTES % (AUTO) 30.3 % (20.0-44.0); MEAN CORPUSCULAR HGB CONC 33 g/dl (31.0-36.0); MEAN CORPUSCULAR VOLUME 86 fL (82-100); MONOCYTES # (AUTO) 0.6 K/uL (0.1-1.30); MONOCYTES % (AUTO) 9.4 % (2.0-12.0); NEUTROPHILS # (AUTO) 3.9 K/uL (1.8-8.9); NEUTROPHILS % (AUTO) 56.3 % (43.0-81.0); PLATELET COUNT (AUTO) 284 K/uL (150-450); RED BLOOD CELL COUNT(AUTO) 4.66 MIL/uL (4.0-5.2); WHITE BLOOD COUNT (AUTO) 6.9 K/uL (4.3-11.0)
[2022-06-04 13:01] VITALS: BP 127/64
[2022-06-04 13:09] LABS: CALCIUM, SERUM 9.3 mg/dL (8.5-10.1); CARBON DIOXIDE 30 mmol/L (21-32); CHLORIDE 102 mmol/L (98-107); CREATININE 1.1 mg/dL (0.6-1.3); GLUCOSE 96 mg/dL (74-106); POTASSIUM 3.5 mmol/L (3.5-5.1); SODIUM SERUM 141 mmol/L (136-145); UREA NITROGEN, BLOOD 22 mg/dL (7-18)
--- NOTE | 2022-06-04 13:46 | NUR ---
IV removed. Catheter intact and site benign. Pressure and 4x4 applied to site. No bleeding noted.Patient discharged to home in stable condition. Written and verbal after care instructions given. Patient verbalizes understanding of instruction.
== END 2022-06-04 13:47 | disposition home or self-care (01) ==
LOC: ER 12:00
DX: R00.2 Palpitations (principal); H81.09 Meniere's disease, unspecified ear; G47.30 Sleep apnea, unspecified; K21.9 Gastro-esophageal reflux disease without esophagitis; I10 Essential (primary) hypertension; E03.9 Hypothyroidism, unspecified; Z88.0 Allergy status to penicillin; Z88.1 Allergy status to other antibiotic agents; Z88.8 Allergy status to other drugs, medicaments and biological substances
CPT/HCPCS: 36415; 71045-TC; 80048-TC; 84484-TC; 85025-TC

== ENCOUNTER 2023-04-10 04:19 | Emergency (ER) | payer MEDICARE, BC ==
[~2023-04-10] VITALS: Ht 162.6 cm; Wt 68.9 kg
[2023-04-10] MEDS ORDERED: ASPIRIN 325 MG TABLET ONE (04:46)
[2023-04-10] MEDS: ASPIRIN 325 MG TABLET PO ONE (04:47)
[2023-04-10 05:16] LABS: ALANINE AMINOTRANSFERASE 27 U/L (12-78); ALKALINE PHOSPHATASE 65 U/L (46-116); ASPARTATE AMINOTRANSFERASE 18 U/L (15-37); BILIRUBIN,DIRECT 0.1 mg/dL (0.0-0.2); BILIRUBIN,TOTAL 0.3 mg/dL (0.2-1.0); CALCIUM, SERUM 9.9 mg/dL (8.5-10.1); CARBON DIOXIDE 31 mmol/L (21-32); CHLORIDE 101 mmol/L (98-107); GLUCOSE 103 mg/dL (74-106); POTASSIUM 3.1 mmol/L (3.5-5.1); SODIUM SERUM 139 mmol/L (136-145); TOTAL PROTEIN, SERUM 8.3 g/dL (6.4-8.2); UREA NITROGEN, BLOOD 19 mg/dL (7-18)
[2023-04-10 05:20] LABS: BASOPHILS # (AUTO) 0.1 K/uL (0.0-0.2); EOSINOPHILS # (AUTO) 0.2 K/uL (0.0-0.7); HEMATOCRIT 41 % (33-45); HEMOGLOBIN 13.5 g/dL (11.5-14.8); LYMPHOCYTES # (AUTO) 2.6 K/uL (0.8-4.8); LYMPHOCYTES % (AUTO) 30.6 % (20.0-44.0); MEAN CORPUSCULAR HEMOGLOBIN 28 PG (26.0-33.0); MEAN CORPUSCULAR HGB CONC 33 g/dl (31.0-36.0); MEAN CORPUSCULAR VOLUME 85 fL (82-100); MONOCYTES # (AUTO) 0.7 K/uL (0.1-1.30); MONOCYTES % (AUTO) 8.5 % (2.0-12.0); NEUTROPHILS # (AUTO) 4.9 K/uL (1.8-8.9); NEUTROPHILS % (AUTO) 57.9 % (43.0-81.0); PLATELET COUNT (AUTO) 285 K/uL (150-450); RED BLOOD CELL COUNT(AUTO) 4.76 MIL/uL (4.0-5.2); WHITE BLOOD COUNT (AUTO) 8.4 K/uL (4.3-11.0)
[2023-04-10 05:27] LABS: INR 0.95 (0.91-1.10); PARTIAL THROMBOPLASTIN TIME 28.8 SEC (24.3-34.3); PROTHROMBIN TIME 10.1 SECS (9.2-11.1)
[2023-04-10 06:07] VITALS: TEMP 97.8
[2023-04-10] MEDS ORDERED: POTASSIUM CHLORIDE 20 MEQ TAB.PRT.SR PO ONE ×2 (08:00→08:16)
[2023-04-10 08:35] VITALS: BP 137/71; O2SAT 99
== END 2023-04-10 08:35 | disposition home or self-care (01) ==
LOC: ER 04:23
DX: R07.9 Chest pain, unspecified (principal); I10 Essential (primary) hypertension; I48.91 Unspecified atrial fibrillation; J45.909 Unspecified asthma, uncomplicated; K21.9 Gastro-esophageal reflux disease without esophagitis; E03.9 Hypothyroidism, unspecified; Z88.0 Allergy status to penicillin; Z88.8 Allergy status to other drugs, medicaments and biological substances
CPT/HCPCS: 36415; 71045-TC; 80048-TC; 80076-TC; 84484-TC; 85025-TC; 85378-TC; 85730-TC

== ENCOUNTER 2023-09-03 20:52 | Emergency (ER) | payer MEDICARE, BC ==
[~2023-09-03] VITALS: Ht 162.6 cm; Wt 68.0 kg
[2023-09-03] MEDS ORDERED: IBUPROFEN 600 MG TABLET ONE (21:37)
[2023-09-03] MEDS: IBUPROFEN 600 MG TABLET PO ONE (21:39)
[2023-09-03] MEDS ORDERED: IBUP-1953 PO (21:43)
[2023-09-04 00:51] VITALS: BP 133/79; TEMP 98.4; O2SAT 98
== END 2023-09-03 22:50 | disposition home or self-care (01) ==
LOC: ER 21:06
DX: S93.492A Sprain of other ligament of left ankle, initial encounter (principal); I48.91 Unspecified atrial fibrillation; K21.9 Gastro-esophageal reflux disease without esophagitis; J45.909 Unspecified asthma, uncomplicated; I10 Essential (primary) hypertension; E03.9 Hypothyroidism, unspecified; Z79.899 Other long term (current) drug therapy; Z88.0 Allergy status to penicillin; Z88.1 Allergy status to other antibiotic agents; W18.39XA Other fall on same level, initial encounter; Y93.89 Activity, other specified; Y92.89 Other specified places as the place of occurrence of the external cause; Y99.8 Other external cause status
CPT/HCPCS: 73610-TC; 73630-TC

== ENCOUNTER 2023-10-26 17:46 | Emergency (ER) | payer MEDICARE, BC ==
[~2023-10-26] VITALS: Ht 162.6 cm; Wt 68.5 kg
[~2023-10-26 17:46] MED LIST changes: +IBUP-1953 PO
[2023-10-26 18:27] LABS: BASOPHILS # (AUTO) 0.1 K/uL (0.0-0.2); BASOPHILS % (AUTO) 0.9 % (0.0-2.0); EOSINOPHILS # (AUTO) 0.2 K/uL (0.0-0.7); EOSINOPHILS % (AUTO) 2.9 % (0.0-6.0); HEMATOCRIT 41 % (33-45); HEMOGLOBIN 13.6 g/dL (11.5-14.8); LYMPHOCYTES # (AUTO) 2.7 K/uL (0.8-4.8); LYMPHOCYTES % (AUTO) 35.2 % (20.0-44.0); MEAN CORPUSCULAR HEMOGLOBIN 29 PG (26.0-33.0); MEAN CORPUSCULAR HGB CONC 34 g/dl (31.0-36.0); MEAN CORPUSCULAR VOLUME 85 fL (82-100); MONOCYTES # (AUTO) 0.6 K/uL (0.1-1.30); MONOCYTES % (AUTO) 8.2 % (2.0-12.0); NEUTROPHILS # (AUTO) 4.1 K/uL (1.8-8.9); NEUTROPHILS % (AUTO) 52.8 % (43.0-81.0); PLATELET COUNT (AUTO) 284 K/uL (150-450); RED BLOOD CELL COUNT(AUTO) 4.78 MIL/uL (4.0-5.2); RED CELL DISTRIBUTION WIDTH 14.1 % (11.5-15.0); WHITE BLOOD COUNT (AUTO) 7.7 K/uL (4.3-11.0)
[2023-10-26 18:35] LABS: CALCIUM, SERUM 9.1 mg/dL (8.5-10.1); CARBON DIOXIDE 31 mmol/L (21-32); CHLORIDE 101 mmol/L (98-107); CREATININE 0.9 mg/dL (0.6-1.3); GLUCOSE 117 mg/dL (74-106); POTASSIUM 3.1 mmol/L (3.5-5.1); SODIUM SERUM 137 mmol/L (136-145); UREA NITROGEN, BLOOD 16 mg/dL (7-18)
[2023-10-26 18:41] LABS: ALANINE AMINOTRANSFERASE 29 U/L (12-78); ALKALINE PHOSPHATASE 68 U/L (46-116); ASPARTATE AMINOTRANSFERASE 21 U/L (15-37); BILIRUBIN,DIRECT 0.1 mg/dL (0.0-0.2); BILIRUBIN,TOTAL 0.2 mg/dL (0.2-1.0); TOTAL PROTEIN, SERUM 8.3 g/dL (6.4-8.2)
[2023-10-26 20:39] VITALS: BP 123/64; TEMP 98.5; O2SAT 98
== END 2023-10-26 20:39 | disposition home or self-care (01) ==
LOC: ER 17:48
DX: R00.2 Palpitations (principal); I10 Essential (primary) hypertension; I48.91 Unspecified atrial fibrillation; K21.9 Gastro-esophageal reflux disease without esophagitis; J45.909 Unspecified asthma, uncomplicated; E03.9 Hypothyroidism, unspecified; Z79.899 Other long term (current) drug therapy; Z88.0 Allergy status to penicillin; Z88.1 Allergy status to other antibiotic agents
CPT/HCPCS: 36415; 71045-TC; 80048-TC; 80076-TC; 84484-TC; 85025-TC

== ENCOUNTER 2024-01-25 01:11 | Emergency (ER) | payer MEDICARE, BC ==
[~2024-01-25] VITALS: Ht 162.6 cm; Wt 65.8 kg
[2024-01-25] MEDS ORDERED: ONDANSETRON HCL/PF 4 MG/2 ML VIAL ONE (02:09)
[2024-01-25] MEDS ORDERED: FAMOTIDINE/PF INJ 20 MG/2 ML VIAL IV ONE (02:09)
[2024-01-25 02:11] LABS: BASOPHILS % (AUTO) 0.2 % (0.0-2.0); EOSINOPHILS # (AUTO) 0.1 K/uL (0.0-0.7); EOSINOPHILS % (AUTO) 0.5 % (0.0-6.0); HEMATOCRIT 41 % (33-45); HEMOGLOBIN 13.5 g/dL (11.5-14.8); LYMPHOCYTES # (AUTO) 0.7 K/uL (0.8-4.8); LYMPHOCYTES % (AUTO) 3.6 % (20.0-44.0); MEAN CORPUSCULAR HEMOGLOBIN 28 PG (26.0-33.0); MEAN CORPUSCULAR HGB CONC 33 g/dl (31.0-36.0); MEAN CORPUSCULAR VOLUME 86 fL (82-100); MONOCYTES # (AUTO) 1.3 K/uL (0.1-1.30); MONOCYTES % (AUTO) 6.7 % (2.0-12.0); NEUTROPHILS # (AUTO) 16.9 K/uL (1.8-8.9); PLATELET COUNT (AUTO) 274 K/uL (150-450); RED BLOOD CELL COUNT(AUTO) 4.75 MIL/uL (4.0-5.2); RED CELL DISTRIBUTION WIDTH 14.1 % (11.5-15.0)
[2024-01-25] MEDS: ONDANSETRON HCL/PF 4 MG/2 ML VIAL IVP ONE (02:14)
[2024-01-25] MEDS: FAMOTIDINE/PF INJ 20 MG/2 ML VIAL IV ONE (02:14)
[2024-01-25] MEDS: IV NS 0.9% 1,000 ML BAG IV ONE (02:14)
[2024-01-25 02:25] LABS: ALANINE AMINOTRANSFERASE 22 U/L (12-78); ALBUMIN 3.7 g/dL (3.4-5.0); ALKALINE PHOSPHATASE 68 U/L (46-116); ASPARTATE AMINOTRANSFERASE 19 U/L (15-37); BILIRUBIN,DIRECT 0.1 mg/dL (0.0-0.2); BILIRUBIN,TOTAL 0.3 mg/dL (0.2-1.0); CALCIUM, SERUM 9.7 mg/dL (8.5-10.1); CARBON DIOXIDE 30 mmol/L (21-32); CHLORIDE 102 mmol/L (98-107); CREATININE 1.1 mg/dL (0.6-1.3); GLUCOSE 114 mg/dL (74-106); LIPASE 71 U/L (16-77); POTASSIUM 3.6 mmol/L (3.5-5.1); SODIUM SERUM 141 mmol/L (136-145); TOTAL PROTEIN, SERUM 8.2 g/dL (6.4-8.2); UREA NITROGEN, BLOOD 17 mg/dL (7-18)
[2024-01-25 04:57] LABS: APPEARANCE,URINE SLIGHTLY CLOUDY (CLEAR); BILIRUBIN,URINE NEGATIVE (NEGATIVE); BLOOD, URINE 1+ Ery/uL (NEGATIVE); COLOR,URINE YELLOW (YELLOW); KETONES,URINE NEGATIVE (NEGATIVE); LEUKOCYTE ESTERASE ,URINE 1+ (NEGATIVE); NITRITE, URINE NEGATIVE (NEGATIVE); PROTEIN,URINE NEGATIVE (NEGATIVE); UGLUCOSE NEGATIVE (NEGATIVE); UROBILINOGEN,URINE 0.2 EU/dL (0.2)
[2024-01-25 05:27] LABS: BACTERIA,URINE Moderate /HPF (None Seen); SQUAMOUS EPITHELIAL CELL,UR Moderate /HPF (None Seen)
[2024-01-25] MEDS ORDERED: NITR100C6 PO (05:27)
[2024-01-25 05:28] LABS: ADD URINE CULTURE NO; YEAST,URINE Moderate /HPF (None Seen)
[2024-01-25] MEDS: NITROFURANTOIN/MONOHYDRATE MACROCRYSTALS 100 MG CAPSULE PO ONE (05:35)
[2024-01-25 05:47] VITALS: BP 106/59; TEMP 98.8; O2SAT 98
== END 2024-01-25 06:17 | disposition home or self-care (01) ==
LOC: ER 01:13
DX: N39.0 Urinary tract infection, site not specified (principal); H81.09 Meniere's disease, unspecified ear; I10 Essential (primary) hypertension; K21.9 Gastro-esophageal reflux disease without esophagitis; I48.91 Unspecified atrial fibrillation; J45.909 Unspecified asthma, uncomplicated; E03.9 Hypothyroidism, unspecified; Z88.0 Allergy status to penicillin; Z88.8 Allergy status to other drugs, medicaments and biological substances; Z20.822 Contact with and (suspected) exposure to COVID-19
CPT/HCPCS: 99285; 74176; 96374; 71045; 96361; 96375; 87426; 85025; 80048; 87086; 83690; 80076; 81001; 36415; J3490; J2405; J7030

== ENCOUNTER 2025-03-17 15:58 | Emergency (ER) | payer MEDICARE, BC ==
[~2025-03-17] VITALS: Ht 162.6 cm; Wt 75.3 kg
[~2025-03-17 15:58] MED LIST changes: +NITR100C6 PO
[2025-03-17 16:05] VITALS: TEMP 98
[2025-03-17 17:25] LABS: PLATELET COUNT (AUTO) 284 K/uL (150-450); RED BLOOD CELL COUNT(AUTO) 4.84 MIL/uL (4.0-5.2); RED CELL DISTRIBUTION WIDTH 14.0 % (11.5-15.0); WHITE BLOOD COUNT (AUTO) 7.6 K/uL (4.3-11.0)
[2025-03-17 17:36] LABS: CALCIUM, SERUM 9.1 mg/dL (8.5-10.1); CREATININE 1.0 mg/dL (0.6-1.3); SODIUM SERUM 139 mmol/L (136-145); UREA NITROGEN, BLOOD 18 mg/dL (7-18)
[2025-03-17 17:50] LABS: NT-PRO BNP 171 pg/mL (0-125)
[2025-03-17 18:22] VITALS: BP 136/72; O2SAT 96
== END 2025-03-17 18:23 | disposition home or self-care (01) ==
LOC: ER 17:05
DX: R00.2 Palpitations (principal); E03.9 Hypothyroidism, unspecified; H81.09 Meniere's disease, unspecified ear; I10 Essential (primary) hypertension; J45.909 Unspecified asthma, uncomplicated; K21.9 Gastro-esophageal reflux disease without esophagitis; R06.02 Shortness of breath; F41.9 Anxiety disorder, unspecified; Z79.899 Other long term (current) drug therapy; Z86.79 Personal history of other diseases of the circulatory system; Z88.0 Allergy status to penicillin; Z88.1 Allergy status to other antibiotic agents
CPT/HCPCS: 36415; 80048-TC; 83735-TC; 83880; 84439-TC; 84443-TC; 84484-TC; 85025-TC